=== PATIENT | male | born 1930 | race Caucasian/White ===

== ENCOUNTER 2018-04-08 11:10 | Outpatient (CLI) | payer OTHER ==
[~2018-04-08] VITALS: Ht 180.3 cm; Wt 95.0 kg
--- NOTE | ~2018-04-08 | OP ---
PATIENT NAME: ANNABELLE VASQUEZ MEDICAL RECORD: [id number] :[birth year] LOCATION:D.CAT ADMISSION DATE: SURGEON: SAYRA MURRIETA MD DATE OF OPERATION: 04/08/2018 PROCEDURE: Left heart catheterization, selective coronary angiography, plus intervention, right femoral artery approach. CATHETERS: A 5-Nauruan sheath, 5/4 left and right Bryon, 5/4 pig. The procedure was well tolerated. Sheath removed. ExoSeal device was placed. FINDINGS: Left ventriculography in the 30-degree STEWARD view. Normal wall motion and normal systolic function. CORONARY ANATOMY: LEFT MAIN: Left main is free of disease. LAD: Has a 50% stenosis and is mid portion, distally 50% to 60% stenosis. CIRCUMFLEX: Circumflex has a high OM/ramus intermedius branch, but has a proximal stenosis of approximately 80%. RIGHT CORONARY ARTERY: Severe diffuse stenosis distally for takeoff the PD of a 90%, more diffuse 80% mid portion and then ostially of greater than 90%. DESCRIPTION OF PROCEDURE: After 5-Nauruan sheath was exchanged for a 6-Nauruan sheath Hockey stick guided catheter provided good catheter support. Initially, we placed a 300 cm Whisper wire and through all sequential lesions placed a 3.0 x 20-mm balloon and went up and down the entire right coronary, down the distal portion of this vessel. Stent deployed. The distal stent required annalisa wire to be placed as with a 2.5 x 18 mm Elder drug-eluting stent, in the mid portion, a 20 mm x 3.0 stent up to 14 atmospheres and more proximally, a 3.0 x 18 and finally ostia 3.0 x 12 all drug-eluting stents up to 14 atmospheres. Final angiography shows excellent resolution of severely diseased entire right coronary with most severe being greater than 90% stenosis residual. MAURA flow was 3 at the end of procedure. Heparin and Integrilin was used in the case. Plavix was loaded in the lab. Sheath closed ExoSeal device. PLAN: Intervention of the circumflex at a later date. TRANSINT:[id number] Voice Confirmation ID: [id number] DOCUMENT ID: [id number] SAYRA MURRIETA MD CC: [id number] DICTATION DATE: 04/08/18 1501 BUTT WELDER: 04/08/18 2224 DEP CLI 04/08/18 [facility] [address] [place] [address]
--- NOTE | ~2018-04-08 | HEMODYNAMI ---
PATIENT:ANNABELLE VASQUEZ MEDICAL RECORD: [id number] : [birth year] LOCATION:[facility] ADMISSION DATE: 04/08/18 Generatedon:04/08/201814:43 Patient name: ANNABELLE VASQUEZ Patient #: [id number] SSN: : 1930 Date of study: 04/08/2018 Page: Of Hemodynamic Procedure Report Patient Data Patient Demographics Procedure consent was obtained First Name: ANNABELLE Gender: Male Last Name: CHRISTINA : 1930 Patient #: [id number] Age: 87 year(s) Race: Unknown Additional ID: [id number] Contact details [address]: [address] [place] [address] State: [place] City: [place] Zip code: [address] Past Medical History Allergies: No known allergies Admission Admission Data Admission Date: 04/08/2018 Admission Time: 11:10 Height (in.): 63 BSA: 1.98 (m2) Height (cm.): 160.02 BMI: 37.38 (kg/m2) Weight (lbs.): 211 Weight (kg.): 95.71 Lab Results Lab Result Date: 04/08/2018 Lab Result Time: 0:00 Biochemistry Name Units Result Min Max BUN mg/dl 26 --(----)-* 7 18 Creatinine mg/dl 0.9 --(-*--)-- 0.6 1.3 CBC Name Units Result Min Max Hemoglobin g/dl 15.1 --(-*--)-- 13.5 17.5 Procedure Procedure Types Cath Procedure Diagnostic Procedure [facility] w/Coronaries Sedation Charges Moderate Sedation up to 45 minutes PCI Procedure Coronary Stent Coronary Stent Initial Procedure Description Procedure Date Procedure Date: 04/08/2018 Procedure Start Time: 13:36 Procedure End Time: 14:39 Procedure Staff Name Function Russel Maxwell MD Performing Physician Nathan Maradiaga RN Clinical Services Consultant Yakelin Kilgore RT Monitor Ale Dai RN Nurse Amber Hall RT Scrub Procedure Data Cath Procedure Fluoroscopy Diagnostic fluoroscopy Total fluoroscopy Time: time: 19.8 min 19.8 min Diagnostic fluoroscopy Total fluoroscopy dose: dose: 2943 mGy 2943 mGy Contrast Material Contrast Material Type Amount (ml) Isovue 300 163 Entry Location Entry Primary Successful Side Size Upsize Upsize Entry Closure Gregorio ccessful Closure Location (Fr) 1 (Fr) 2 (Fr) Remarks Device Remarks Femoral Right 5 Fr 6 Fr Mechanical artery Short Compression Estimated blood loss: 10 ml Diagnostic catheters Device Type Used For End Catheter Placement MULTIPACK JL 4.0 5Fr Procedure catheter MULTIPACK 3DRC 5Fr Procedure catheter MULTIPACK Pigtail 5 Fr Procedure catheter Procedure Medications Medication Administration Route Dosage Oxygen etCO2 Nasal cannula 2 l/min Lidocaine 2% added to field 20 Heparin Flush Bag added to field 2 bags (1000units/500ml NS) 0.9% NaCl I.V. 100 ml/hr Radial Cocktail added to field 1 syringe (Verapomil 2mg/Nitro 400mcg/Heparin 1500units) Versed I.V. 1 mg Fentanyl I.V. 50 mcg Versed I.V. 1 mg Fentanyl I.V. 50 mcg Heparin Bolus I.V. 4000 units Integrilin (Bolus I.V. 8.5 ml 2mg/ml) Vasotec 2.5 mg Versed I.V. 1 mg Fentanyl I.V. 50 mcg Heparin Bolus I.V. 2000 units Versed I.V. 1 mg Fentanyl I.V. 50 mcg Plavix P.O. 600 mg Hemodynamics Rest BSA: 1.98 (m2) O2 Consumption: Estimated: 211.7 (ml/min) O2 Consumption indexed: Estimated:106.92 (ml/min/m) Heart Rate: 54 (bpm) Pressure Samples Time Site Value (mmHg) Purpose Heart Use Rate(bpm) 13:46 AO 182/65(87) Snapshot 55 13:50 LV 186/25,33 Snapshot 56 13:51 LV 182/23,33 EDP 56 13:51 AO 183/73(119) Pullback 56 13:51 LV 176/19,25 Pullback 56 Gradients Valve Time Site 1 Site 2 Mean SEP/DFP Peak To Heart Use (mmHg) (sec/min) Peak Rate (mmHg) (bpm) Aortic 13:51 LV AO 0 20 0 56 176/19,25 183/73(119) Calculations Valve P-P Mean Valve Index Valve Source Name Gradient Area Flow (cm2) Aortic 0 0 0 0 Snapshots Pre Cath Intra NCS Post Cath Vital Signs Time Heart Resp SPO2 etCO2 NIBP (mmHg) Rhythm Pain Sedation Rate (ipm) (%) (mmHg) Status Level (bpm) 13:26:14 56 12 98 29.8 186/80(170) NSR 0 (11) 10(A) , No pain 13:31:31 52 13 96 30 167/81(137) NSR 0 (11) 10(A) , No pain 13:35:57 54 12 94 0 153/75(122) NSR 0 (11) 9(A) , No pain 13:40:18 50 14 93 0 153/75(133) NSR 0 (11) 9(A) , No pain 13:44:38 50 13 98 26.1 165/73(125) NSR 0 (11) 9(A) , No pain 13:49:04 54 12 96 0 161/71(133) NSR 0 (11) 9(A) , No pain 13:53:28 56 13 93 0 159/72(140) NSR 0 (11) 9(A) , No pain 13:57:46 62 19 96 9.6 163/92(144) NSR 0 (11) 9(A) , No pain 14:03:14 63 19 99 10.4 194/93(161) NSR 0 (11) 10(A) , No pain 14:07:44 68 13 99 25.3 205/104(166) NSR 0 (11) 9(A) , No pain 14:12:19 63 12 92 25.3 194/111(132) NSR 0 (11) 9(A) , No pain 14:16:49 64 11 94 18.6 210/107(172) NSR 0 (11) 9(A) , No pain 14:21:22 60 12 94 14.8 187/93(159) NSR 0 (11) 9(A) , No pain 14:25:50 65 12 98 13.4 201/99(166) NSR 0 (11) 9(A) , No pain 14:31:24 66 13 98 28.2 202/107(161) NSR 0 (11) 9(A) , No pain 14:35:56 65 12 96 11.9 207/97(171) NSR 0 (11) 10(A) , No pain 14:41:46 63 16 96 9.6 201/97(167) NSR 0 (11) 10(A) , No pain Medications Time Medication Route Dose Verified Delivered Reason Not es Effectiveness by by 13:24:28 Oxygen etCO2 2 l/min Russel Buffie used for Nasal [facility] RN procedure cannula 13:24:35 Lidocaine 2% added 20ml Russel Russel for local to vial [facility] anesthetic field MD KEY 13:24:41 Heparin Flush added 2 bags Russel Russel used for Bag to [facility] procedure (1000units/500ml field MD KEY NS) 13:24:50 0.9% NaCl I.V. 100 Russel Buffie Per physician ml/hr [facility] RN, MD 13:24:56 Radial Cocktail added 1 Russel Russel for not used (Verapomil to syringe [facility] vasodilation 2mg/Nitro field MD KEY 400mcg/Heparin 1500units) 13:32:46 Versed I.V. 1 mg Russel Buffie for sedation [facility] RN, MD 13:32:52 Fentanyl I.V. 50 mcg Russel Buffie for sedation [facility] RN, MD 13:46:42 Versed I.V. 1 mg Russel Buffie for sedation [facility] RN, MD 13:46:45 Fentanyl I.V. 50 mcg Russel Buffie for sedation [facility] RN, MD 13:51:24 Heparin Bolus I.V. 4000 Russel Buffie for oscar ified units [facility] D[facility] RN anticoagulation with dr MD cheng 13:53:19 Integrilin I.V. 8.5 ml Russel Yanezie for Was carol ann (Bolus 2mg/ml) [facility] RN antiplatelet 1.5 ml MD therapy of vial 14:03:01 Vasotec IV 2.5 mg Russel Buffie Per physician [facility] RN, MD 14:06:40 Versed I.V. 1 mg Russel Buffie for sedation [facility] RN, MD 14:06:45 Fentanyl I.V. 50 mcg Russel Buffie for sedation [facility] RN, MD 14:23:28 Heparin Bolus I.V. 2000 Russel Yanezie for oscar ified units [facility] D[facility] RN anticoagulation with dr MD cheng 14:33:13 Versed I.V. 1 mg Russel Aguilera for sedation [facility] RN, MD 14:33:17 Fentanyl I.V. 50 mcg Russel Aguilera for sedation [facility] RN, MD 14:40:29 Plavix P.O. 600 mg Russel Aguilera for [facility] RN antiplatelet MD therapy Procedure Log Time Note 13:14:02 Diagnostic Cath status Elective 13:14:08 Nathan Maradiaga RN sent for patient. Start room use. 13:14:39 Patient Height : 63 inches 13:14:44 Patient Weight : 211 lbs 13:17:40 Lab Result : BUN 26 mg/dl 13:17:40 Lab Result : Hemoglobin 15.1 g/dl 13:17:40 Lab Result : Creatinine 0.9 mg/dl 13:18:14 Time tracking: Regular hours (M-F 7:00 - 5:00) 13:18:19 Plan of Care:Hemodynamics will remain stable., Cardiac rhythm will remain stable., Comfort level will be maintained., Respiratory function will remain adequate., Patient/ family verbilizes understanding of procedure., Procedure tolerated without complication., Recovers from procedure without complications.. 13:18:25 Patient received from Pre/Post Procedure Room to CCL 2 Alert and oriented. Tansferred to table in Supine position. 13:18:27 Warm blankets applied, and heriberto hugger turned on for patient comfort. 13:18:27 Correct patient and procedure confirmed by team. 13:18:29 Signed procedure consent form obtained from patient. 13:18:32 ECG and BP/O2 sat monitors applied to patient. 13:18:45 H&P Date Dictated: 04/02/2018 Within 30 days and on chart., H&P Addendum completed by physician on day of procedure. (MUST COMPLETE FOR ALL OUTPATIENTS). 13:18:49 Family in waiting room. 13:18:51 Patient NPO since Midnight. 13:19:00 Patient allergic to No known allergies 13:19:03 Is the patient allergic to Iodine/contrast media? No. 13:19:04 Was the patient premedicated? Yes 13:19:09 Is patient on blood thinner?No 13:19:11 Patient diabetic? No. 13:19:16 Snore? Yes 13:19:17 Sleep apnea? Yes 13:19:24 Dentures? Yes tight 13:19:28 Patient pain scale 0/10 ?. 13:19:40 IV patent on arrival in left forearm with 0.9% NaCl at [facility]. 13:19:47 Lab results completed and on chart. 13:19:59 Right Radial & Right Groin area was prepped with chlora-prep and draped in sterile fashion 13:20:00 Alarms reviewed by R. N. 13:20:00 Sharps counted by scrub and verified by R.N. 13:20:02 Physician paged 13:24:28 Oxygen 2 l/min etCO2 Nasal cannula was administered by Ale Dai RN; used for procedure; 13:24:35 Lidocaine 2% 20ml vial added to field was administered by Russel Maxwell MD; for local anesthetic; 13:24:41 Heparin Flush Bag (1000units/500ml NS) 2 bags added to field was administered by Russel Maxwell MD; used for procedure; 13:24:50 0.9% NaCl 100 ml/hr I.V. was administered by Ale Dai RN; Per physician; 13:24:56 Radial Cocktail (Verapomil 2mg/Nitro 400mcg/Heparin 1500units) 1 syringe added to field was administered by Russel Maxwell MD; for vasodilation; not used 13:25:01 Vital chart was started 13:27:28 Physician arrived 13:29:07 Use device set Radial Dx or PCI 13:29:09 ACIST Syringe (65798) opened to sterile field. 13:29:10 Medline Cath Pack ([id number]) opened to sterile field. 13:29:10 Bag Decanter () opened to sterile field. 13:29:10 DIAGNOSTIC WIRE .035 260cm J wire (566735) opened to sterile field. 13:29:14 ACIST Hand Control (45860) opened to sterile field. 13:29:14 ACIST Manifold (17692) opened to sterile field. 13:29:15 Tegaderm 4 x 4 (1626W) opened to sterile field. 13:29:22 SHEATH 6FR Slender (40-1060) opened to sterile field. 13:29:23 MBrace Wrist Support ([id number]) opened to sterile field. 13:30:40 Zero performed for pressure channel P1 13:32:32 --------ALL STOP TIME OUT------ 13:32:32 Final Timeout: patient, procedure, and site verified with staff and physician. All members of the team are in agreement. 13:32:35 Right Radial & Right Groin site verified by team. 13:32:40 Physical assessment completed. ASA score P 2 - A patient with mild systemic disease as per Russel Maxwell MD. 13:32:43 Sedation plan: IV Moderate Sedation Medication:Versed, Fentanyl 13:32:46 Versed 1 mg I.V. was administered by Ael Dai RN; for sedation; 13:32:52 Fentanyl 50 mcg I.V. was administered by Ale Dai RN; for sedation; 13:36:36 Procedure started. 13:36:36 Full Disclosure recording started 13:36:56 Local anesthetic to right radial artery with Lidocaine 2% by Russel Maxwell MD.INITIAL ACCESS ONLY 13:37:29 Baseline sample Acquired. 13:42:26 Local anesthetic to left femerol artery with Lidocaine 2% by Russel Maxwell MD.ADDITIONAL ACCESS 13:42:47 SHEATH 5FR Castile (XGL047) opened to sterile field. 13:42:48 DIAGNOSTIC Multipack 5Fr catheter set (LK5478) opened to sterile field. 13:43:07 A 5 Fr sheath was inserted into the Right Femoral artery 13:43:12 J wire advanced. 13:45:43 A MULTIPACK JL 4.0 5Fr catheter was advanced over the wire and used for Procedure. 13:45:53 Baseline sample Acquired. 13:46:42 Versed 1 mg I.V. was administered by Ale Dai RN; for sedation; 13:46:45 Fentanyl 50 mcg I.V. was administered by Ale Dai RN; for sedation; 13:47:45 LCA angiography performed. 13:48:00 Catheter removed. 13:48:13 A MULTIPACK 3DRC 5Fr catheter was advanced over the wire and used for Procedure. 13:48:59 RCA angiography performed. 13:49:14 Catheter removed. 13:50:04 A MULTIPACK Pigtail 5 Fr catheter was advanced over the wire and used for Procedure. 13:50:08 LV angiography performed. 13:51:24 Heparin Bolus 4000 units I.V. was administered by Ale Dai RN; for anticoagulation; verified with dr skylar 13:51:33 Catheter removed. 13:51:38 EF : 50 % 13:53:19 Integrilin (Bolus 2mg/ml) 8.5 ml I.V. was administered by Ale Dai RN; for antiplatelet therapy; Wasted 1.5 ml of vial 13:53:41 INFLATOR Merit Hiltonpak (QT5465) opened to sterile field. 13:53:41 GUIDE 6FR HS I SH catheter ([id number]) opened to sterile field. 13:53:42 WHISPER 300cm guide wire ([id number]) opened to sterile field. 13:53:44 SHEATH 6FR Castile (SUM803) opened to sterile field. 13:53:48 Catheter removed. 13:53:52 Proceeding to intervention. 13:54:03 Sheath upsized to a 6 Fr Short. 13:54:16 6 Fr AR1SH guide catheter was inserted over the wire 13:54:25 whisper wire advanced. 13:56:14 Wire advanced across lesion. 13:57:36 Inflate balloon Inflation number: 1 A EMERGE OTW 3.0 x 20 balloon ([id number]) was prepped and advanced across the Dist RCA, then inflated to 10 JONATAN for 0:11 (min:sec). 13:58:04 Inflation number: 2 The EMERGE OTW 3.0 x 20 balloon ([id number]) was reinflated across the Dist RCA, to 10 JONATAN for 0:15 (min:sec). 13:58:31 Inflation number: 3 The EMERGE OTW 3.0 x 20 balloon ([id number]) was reinflated across the Dist RCA, to 12 JONATAN for 0:13 (min:sec). 13:59:06 Inflation number: 1 The EMERGE OTW 3.0 x 20 balloon ([id number]) was reinflated across the Mid RCA, to 12 JONATAN for 0:14 (min:sec). 13:59:54 CHOICE PT Extra Support J 300cm guide wire ([id number]) opened to sterile field. 14:00:14 Wire removed. 14:00:28 Choice pt ex wire advanced. 14:01:01 Inflation number: 2 The EMERGE OTW 3.0 x 20 balloon ([id number]) was reinflated across the Mid RCA, to 12 JONATAN for 0:07 (min:sec). 14:02:12 Inflation number: 1 The EMERGE OTW 3.0 x 20 balloon ([id number]) was reinflated across the Prox RCA, to 12 JONATAN for 0:10 (min:sec). 14:02:41 Inflation number: 2 The EMERGE OTW 3.0 x 20 balloon ([id number]) was reinflated across the Prox RCA, to 10 JONATAN for 0:10 (min:sec). 14:03:01 Vasotec 2.5 mg IV was administered by Ale Dai RN; Per physician; 14:06:40 Versed 1 mg I.V. was administered by Ale Dai RN; for sedation; 14:06:45 Fentanyl 50 mcg I.V. was administered by Ale Dai RN; for sedation; 14:07:29 Balloon removed over the wire. 14:09:44 Inflate balloon Inflation number: 4 A EMERGE OTW 2.5 x 30 balloon ([id number]) was prepped and advanced across the Dist RCA, then inflated to 12 JONATAN for 0:25 (min:sec). 14:10:17 Inflation number: 3 The EMERGE OTW 2.5 x 30 balloon ([id number]) was reinflated across the Mid RCA, to 14 JONATAN for 0:12 (min:sec). 14:11:05 Inflation number: 3 The EMERGE OTW 2.5 x 30 balloon ([id number]) was reinflated across the Prox RCA, to 14 JONATAN for 0:28 (min:sec). 14:11:50 Balloon removed over the wire. 14:15:48 Place stent Inflation Number: 4 A RACHAEL OTW 3.0 x 22 stent ([id number]) was prepped and advanced across the Mid RCA. The stent was deployed at 14 JONATAN for 0:21 (min:sec). 14:16:42 Stent catheter was removed intact over wire. 14:21:03 WHISPER 300cm guide wire ([id number]) opened to sterile field. 14:21:37 New whisper wire opened to annalisa with choice pt and stent 14:23:28 Heparin Bolus 2000 units I.V. was administered by Ale Dai RN; for anticoagulation; verified with dr cheng 14:24:09 annalisa wire removed 14:24:33 Place stent Inflation Number: 5 A RACHAEL OTW 2.5 x 15 stent ([id number]) was prepped and advanced across the Dist RCA. The stent was deployed at 14 JONATAN for 0:20 (min:sec). 14:26:08 Stent catheter was removed intact over wire. 14:31:27 Place stent Inflation Number: 4 A RACHAEL OTW 3.0 x 18 stent ([id number]) was prepped and advanced across the Prox RCA. The stent was deployed at 0 JONATAN for 0:06 (min:sec). 14:31:38 Stent catheter was removed intact over wire. 14:33:13 Versed 1 mg I.V. was administered by Ale Dai RN; for sedation; 14:33:17 Fentanyl 50 mcg I.V. was administered by Ale Dai RN; for sedation; 14:33:55 Place stent Inflation Number: 5 A RACHAEL RX 3.0 x 12 stent ([id number]) was prepped and advanced across the Prox RCA. The stent was deployed at 14 JONATAN for 0:22 (min:sec). 14:34:45 EXOSEAL 6Fr (EX600) opened to sterile field. 14:34:50 Wire removed. 14:34:51 Guide catheter removed. 14:35:01 Sheath removed intact; hemostasis achieved with Mechanical Compression to the Right Femoral artery. 14:35:03 Procedure ended.(Physican Out) 14:35:36 Fluoroscopy time 19.80 minutes. 14:35:41 Fluoroscopy dose: 2943 mGy 14:35:41 Flurop Dose total: 2943 14:35:47 Contrast amount:Isovue 300 163ml. 14:35:48 Sharps counted by scrub and verified by R.N. 14:35:56 Insertion/operative site no bleeding no hematoma. 14:36:51 Post-op/insertion site Right Femoral artery dressed using a 4 x 4 and Tegaderm. 14:36:58 Post Procedure Pulses reassessed and unchanged 14:37:03 Post-procedure physical assessment completed. ASA score P 2 - A patient with mild systemic disease as per Russel Maxwell MD. 14:37:07 Post procedure rhythm: unchanged. 14:37:12 Estimated blood loss: 10 ml 14:37:24 Post procedure instruction explained to patient.Patient verbalizes understanding. 14:38:03 Procedure type changed to Cath procedure, Diagnostic procedure, LHC, LHC w/Coronaries, Sedation Charges, Moderate Sedation up to 45 minutes, PCI procedure, Coronary Stent, Coronary Stent Initial 14:38:05 Procedure and supply charges have been captured, reviewed, submitted and are correct. 14:39:02 Vital chart was stopped 14:39:03 See physician's report for complete and final results. 14:39:05 Report given to Pre/Post Procedure Room. 14:39:08 Patient transfered to Pre/Post Procedure Room with Stretcher. 14:39:10 Procedure ended. 14:39:10 Full Disclosure recording stopped 14:39:19 ACC-PCI Only Patient was given prescriptions, or instructed by Russel Maxwell MD to start/continue the following medications upon discharge: Aspirin 14:39:20 End room use (Document Last) 14:40:29 Plavix 600 mg P.O. was administered by Ale Dai RN; for antiplatelet therapy; Intervention Summary Intervention Notes Time ActionType Lesion and Equipment Used Action# Pressure Duration Attributes 13:57:36 Inflate Dist RCA EMERGE OTW 3.0 1 10 00:11 balloon x 20 balloon ([id number]) 13:58:04 Reinflate Dist RCA EMERGE OTW 3.0 2 10 00:15 balloon x 20 balloon ([id number]) 13:58:31 Reinflate Dist RCA EMERGE OTW 3.0 3 12 00:13 balloon x 20 balloon ([id number]) 13:59:06 Reinflate Mid RCA EMERGE OTW 3.0 1 12 00:14 balloon x 20 balloon ([id number]) 14:01:01 Reinflate Mid RCA EMERGE OTW 3.0 2 12 00:07 balloon x 20 balloon ([id number]) 14:02:12 Reinflate Prox RCA EMERGE OTW 3.0 1 12 00:10 balloon x 20 balloon ([id number]) 14:02:41 Reinflate Prox RCA EMERGE OTW 3.0 2 10 00:10 balloon x 20 balloon ([id number]) 14:09:44 Inflate Dist RCA EMERGE OTW 2.5 4 12 00:25 balloon x 30 balloon ([id number]) 14:10:17 Reinflate Mid RCA EMERGE OTW 2.5 3 14 00:12 balloon x 30 balloon ([id number]) 14:11:05 Reinflate Prox RCA EMERGE OTW 2.5 3 14 00:28 balloon x 30 balloon ([id number]) 14:15:48 Place stent Mid RCA RACHAEL OTW 3.0 x 4 14 00:21 22 stent ([id number]) 14:24:33 Place stent Dist RCA RACHAEL OTW 2.5 x 5 14 00:20 15 stent ([id number]) 14:31:27 Place stent Prox RCA RACHAEL OTW 3.0 x 4 0 00:06 18 stent ([id number]) 14:33:55 Place stent Prox RCA RACHAEL RX 3.0 x 5 14 00:22 12 stent ([id number]) Device Usage Item Name Manufacture Quantity Catalog Number Hospital Part Current Minimal Lot# / Charge Number Stock Stock Serial# Code ACIST Syringe Acist 1 43203 079089 390440 111621 20 (72499) Medical Systems Inc Medline Cath Medline 1 [id number] 340481 00914 137890 5 Pack ([id number]) Bag Decanter Microtek 1 372088 47154 237920 5 () Medical Inc. DIAGNOSTIC St Yaya 1 245732 193992 656268 522453 30 WIRE .035 260cm J wire (968701) ACIST Hand Acist 1 97450 830163 728304 526992 5 Control Medical (24497) Systems Inc ACIST Manifold Acist 1 54293 694623 308180 731637 5 (68803) Medical Systems Inc Tegaderm 4 x 4 3M 1 1626W 347116 517069 681794 5 (1626W) SHEATH 6FR Terumo 1 [id number] 248965 040171 712238 5 Slender (80-1060) MBrace Wrist Advanced 1 140-0250-00 149110 69313 577449 5 Support Vascular ([id number]) Dynamics SHEATH 5FR Terumo 1 ZVG276 555692 179386 406535 5 Castile (FUA335) DIAGNOSTIC Cardinal 1 JL4317 757542 10405 198301 30 Multipack 5Fr Health catheter set (SO3421) MULTIPACK JL Cardinal 1 816703 5 4.0 5Fr Health catheter MULTIPACK 3DRC Cardinal 1 844938 5 5Fr catheter Health MULTIPACK Cardinal 1 698490 5 Pigtail 5 Fr Health catheter INFLATOR Merit Merit 1 GA9004 922062 799467 289858 [facility] (YR1757[facility] GUIDE 6FR HS I Medtronic 1 [id number] 143307 44413 768317 1 SH catheter ([id number]) WHISPER 300cm Zimmer 2 [id number] 545524 815202 096969 5 guide wire Vascular ([id number]) SHEATH 6FR Terumo 1 RHZ743 590343 905743 628424 40 Castile (HYN695) EMERGE OTW 3.0 Mckenna 1 [id number] 041946 283292 221423 5 [id number] x 20 balloon Scientific ([id number]) CHOICE PT Mckenna 1 [id number] 780849 140294 461131 5 Extra Support Scientific J 300cm guide wire (7003957X2) EMERGE OTW 2.5 Mckenna 1 [id number] 748418 700021 579439 5 89463112 x 30 balloon Scientific ([id number]) RACHAEL OTW 3.0 x Medtronic 1 [id number] 779684 1989635 146418 5 [id number] 22 stent ([id number]) RACHAEL OTW 2.5 x Medtronic 1 [id number] 763525 28203 906256 5 [id number] 15 stent ([id number]) RACHAEL OTW 3.0 x Medtronic 1 [id number] 465784 5321733 707760 5 [id number] 18 stent ([id number]) RACHAEL RX 3.0 x Medtronic 1 [id number] 999124 9964338 469430 5 [id number] 12 stent ([id number]) EXOSEAL 6Fr Cardinal 1 EX600 569034 882887 223507 10 (EX600) Health Signature Audit [place] Stage Time Signature Unsigned Intra-Procedure 04/08/2018 Yakelin Kilgore 2:43:46 PM RT(R) Signatures Monitor : Yakelin Kilgore RT Signature : Date : Time : [facility] [address] [facility] [place] [address]
[2018-04-08] MEDS ORDERED: OMEPRAZOLE40 MG PO (11:25)
[2018-04-08] MEDS ORDERED: LISINOPRIL10 MG PO (11:26)
[2018-04-08 11:57] VITALS: BP 182/71; Ht 180.3 cm; Wt 95.0 kg
[2018-04-08 12:07] LABS: CALC OSMOLALITY 283 mosm/kg (275-300); CARBON DIOXIDE 27.8 mmol/L (21.0-32.0); CHLORIDE - SERUM 105 mmol/L (98-107); CREATININE - SERUM 0.9 mg/dL (0.6-1.3); GLUCOSE 95 mg/dL (74-106); POTASSIUM - SERUM 3.9 mmol/L (3.5-5.1); SODIUM 140 mmol/L (136-145); UREA NITROGEN 26 mg/dL (7-18); eGFR NON AFRICAN AMERICAN 84 mL/min (90-120)
[2018-04-08 12:09] LABS: HEMATOCRIT 41.5 % (42.0-54.0); HEMOGLOBIN 15.1 g/dL (13.5-17.5); LYMPHOCYTES 35.9 % (15-50); MCH 32.1 pg (26.0-34.0); MCHC 36.4 g/dL (31.0-37.0); MCV 88.1 fL (80.0-100.0); MEAN PLATELET VOLUME 10.9 fL (7.4-10.4); PLATELET COUNT 164 10x3/uL (130-400); RBC 4.71 10x6/uL (4.20-6.10); RDW 13.3 % (11.5-14.5); WBC 6.7 10x3/uL (4.8-10.8)
[2018-04-08] MEDS ORDERED: BAYER CHEWABLE81 MG PO (14:56)
[2018-04-08] MEDS ORDERED: PLAVIX75 MG PO (14:56)
== END 2018-04-08 18:40 | disposition home or self-care (01) ==
LOC: D.CATH 11:10
PROVIDERS: Internal Medicine Interventional Cardiology
DX: I25.119 Atherosclerotic heart disease of native coronary artery with unspecified angina pectoris (principal); Z01.812 Encounter for preprocedural laboratory examination

== ENCOUNTER 2018-04-28 06:37 | Outpatient (CLI) | payer MEDICARE ==
[~2018-04-28] VITALS: Ht 180.3 cm; Wt 94.5 kg
--- NOTE | ~2018-04-28 | HEMODYNAMI ---
PATIENT:ANNABELLE VASQUEZ MEDICAL RECORD: [id number] : [birth year] LOCATION:[facility] ADMISSION DATE: 04/28/18 Generatedon:04/28/201810:02 Patient name: ANNABELLE VASQUEZ Patient #: [id number] SSN: : 1930 Date of study: 04/28/2018 Page: Of Hemodynamic Procedure Report Patient Data Patient Demographics Procedure consent was obtained First Name: ANNABELLE Gender: Male Last Name: CHRISTINA : 1930 Patient #: [id number] Age: 87 year(s) Race: Unknown Additional ID: [id number] Contact details Address: [address] [place] [address] State: [place] City: [place] Zip code: [address] Past Medical History Allergies: No known allergies Admission Admission Data Admission Date: 04/28/2018 Admission Time: 6:37 Height (in.): 72 BSA: 2.18 (m2) Height (cm.): 182.88 BMI: 28.62 (kg/m2) Weight (lbs.): 211 Weight (kg.): 95.71 Procedure Procedure Types Cath Procedure PCI Procedure Coronary Stent Coronary Stent Initial Procedure Description Procedure Date Procedure Date: 04/28/2018 Procedure Start Time: 9:49 Procedure End Time: 9:57 Procedure Staff Name Function Russel Maxwell MD Performing Physician Emma Fernandez RT Monitor Cristal Solo RN Nurse Radha Merlos RT Scrub Nathan Maradiaga RN Store Lead Procedure Data Cath Procedure Fluoroscopy Diagnostic fluoroscopy Total fluoroscopy Time: 1 time: 1 min min Diagnostic fluoroscopy Total fluoroscopy dose: 182 dose: 182 mGy mGy Contrast Material Contrast Material Type Amount (ml) Isovue 300 33 Entry Location Entry Primary Successful Side Size Upsize Upsize Entry Closure Succes sful Closure Location (Fr) 1 (Fr) 2 (Fr) Remarks Device Remarks Femoral Right 6 Fr Exoseal artery Short Estimated blood loss: 10 ml Procedure Complications No complications Procedure Medications Medication Administration Route Dosage 0.9% NaCl I.V. 100 ml/hr Oxygen etCO2 Nasal cannula 2 l/min Lidocaine 2% added to field 20 Heparin Flush Bag added to field 2 bags (1000units/500ml NS) Versed I.V. 2 mg Fentanyl I.V. 50 mcg Heparin Bolus I.V. 5000 units Versed I.V. 1 mg Plavix P.O. 75 mg Hemodynamics Rest BSA: 2.18 (m2) O2 Consumption: Estimated: 247.33 (ml/min) O2 Consumption indexed : Estimated:113.45 (ml/min/m) Heart Rate: 71 (bpm) Snapshots Pre Cath Intra NCS Post Cath Vital Signs Time Heart Resp SPO2 etCO2 NIBP (mmHg) Rhythm Pain Sedation Rate (ipm) (%) (mmHg) Status Level (bpm) 9:30:51 72 14 98 28.6 180/106(145) NSR 0 (11) 10(A) , No pain 9:35:25 68 15 100 29 143/95(116) NSR 0 (11) 10(A) , No pain 9:40:55 71 16 98 27 158/88(120) NSR 0 (11) 10(A) , No pain 9:46:39 72 12 97 28 177/85(125) NSR 0 (11) 10(A) , No pain 9:52:25 70 14 98 32 159/98(124) NSR 0 (11) 9(A) , No pain 9:56:58 70 14 97 29.6 172/91(147) NSR 0 (11) 10(A) , No pain 10:01:34 71 15 98 13.5 189/95(132) NSR 0 (11) 10(A) , No pain Medications Time Medication Route Dose Verified Delivered Reason Notes Effectiveness by by 9:35:02 0.9% NaCl I.V. 100 Russel Bee used for ml/hr Alissa Edil procedure MD [place] 9:35:09 Oxygen etCO2 2 Russel Bee used for Nasal l/min AlissaMark Solo procedure cannula MD [place] 9:35:15 Lidocaine 2% added 20ml Russel Goode for local to vial [facility] anesthetic field MD [place] 9:35:20 Heparin Flush added 2 Russel Goode used for Bag to bags [facility] procedure (1000units/500ml field MD KEY NS) 9:41:13 Plavix P.O. 75 mg Russel Camejoyla for [facility] antiplatelet RN therapy 9:43:31 Versed I.V. 2 mg Russel Camejoyla for sedation [facility] MD, RN 9:43:40 Fentanyl I.V. 50 Russel Camejoyla for sedation mcg [facility] MD, RN 9:48:21 Versed I.V. 1 mg Russel Camejoyla for sedation [facility] MD, RN 9:49:54 Heparin Bolus I.V. 5000 Russel Cristal for verifi ed units [facility] anticoagulation with Dr. MD BERE Fiore Procedure Log Time Note 8:51:38 Procedure type changed to Cath procedure, PCI procedure, Coronary Stent, Coronary Stent Initial 8:51:42 Time tracking: Regular hours (M-F 7:00 - 5:00) 8:51:46 Plan of Care:Hemodynamics will remain stable., Cardiac rhythm will remain stable., Comfort level will be maintained., Respiratory function will remain adequate., Patient/ family verbilizes understanding of procedure., Procedure tolerated without complication., Recovers from procedure without complications.. 9:09:27 Patient allergic to No known allergies 9:09:42 H&P Date Dictated: 04/02/2018 Within 30 days and on chart., H&P Addendum completed by physician on day of procedure. (MUST COMPLETE FOR ALL OUTPATIENTS). 9:10:11 Patient Weight : 211 lbs 9:10:54 Patient Height : 72 inches 9:20:45 Nathan Maradiaga RN sent for patient. Start room use. 9:26:34 Patient received from Pre/Post Procedure Room to CCL 1 Alert and oriented. Tansferred to table in Supine position. 9:26:35 Warm blankets applied, and heriberto hugger turned on for patient comfort. 9:26:35 Correct patient and procedure confirmed by team. 9:26:37 Signed procedure consent form obtained from patient. 9:26:38 ECG and BP/O2 sat monitors applied to patient. 9:26:39 Full Disclosure recording started 9:29:32 Vital chart was started 9:35:02 0.9% NaCl 100 ml/hr I.V. was administered by Cristal Solo RN; used for procedure; 9:35:09 Oxygen 2 l/min etCO2 Nasal cannula was administered by Cristal Solo RN; used for procedure; 9:35:15 Lidocaine 2% 20ml vial added to field was administered by Russel Maxwell MD; for local anesthetic; 9:35:20 Heparin Flush Bag (1000units/500ml NS) 2 bags added to field was administered by Russel Maxwell MD; used for procedure; 9:38:04 Baseline sample Acquired. 9:38:12 Pre-procedure instructions explained to patient. 9:38:12 Pre-op teaching completed and patient verbalized understanding. 9:38:13 Family in patients room. 9:38:15 Patient NPO since Midnight. 9:38:39 Is patient on blood thinner?Yes 9:38:41 ACC The patient was administered the following blood thiners within the last 24 hours: ACCPlavix 9:38:45 Patient diabetic? No. 9:38:57 Previous problem with sedation/anesthesia? No ? 9:39:03 Snore? No 9:39:04 Sleep apnea? No 9:39:06 Deviated septum? No 9:39:07 Opens mouth fully? Yes 9:39:08 Sticks out tongue? Yes 9:39:10 Airway obstruction? No ? 9:39:13 Dentures? No ? 9:39:15 Pre procedure: right dorsailis pedis pulse 2+ Normal; easily identifiable; not easily obliterated 9:39:28 IV patent on arrival in left hand with 0.9% NaCl at O. 9:39:43 Lab results completed and on chart. 9:39:46 Right groin area was prepped with chlora-prep and draped in sterile fashion 9:39:50 Alarms reviewed by R. N. 9:39:51 Sharps counted by scrub and verified by R.N. 9:39:55 Use device set CATH PACK 9:39:57 ACIST Syringe (35457) opened to sterile field. 9:39:57 ACIST Hand Control (66507) opened to sterile field. 9:39:58 ACIST Manifold (85593) opened to sterile field. 9:39:58 Medline Cath Pack ([id number]) opened to sterile field. 9:39:58 Bag Decanter () opened to sterile field. 9:39:59 DIAGNOSTIC WIRE .035 260cm J wire (275090) opened to sterile field. 9:40:08 SHEATH 6FR Silverpeak (LJG404) opened to sterile field. 9:40:21 INFLATOR Merit BasixCompak (BL3785) opened to sterile field. 9:40:22 WHISPER 300cm guide wire ([id number]) opened to sterile field. 9:41:13 Plavix 75 mg P.O. was administered by Cristal Solo RN; for antiplatelet therapy; 9:42:10 --------ALL STOP TIME OUT------ 9:42:10 Final Timeout: patient, procedure, and site verified with staff and physician. All members of the team are in agreement. 9:42:11 Right groin site verified by team. 9:42:14 Physical assessment completed. ASA score P 2 - A patient with mild systemic disease as per Russel Maxwell MD. 9:42:16 Sedation plan: IV Moderate Sedation Medication:Versed, Fentanyl 9:43:31 Versed 2 mg I.V. was administered by Cristal Solo RN; for sedation; 9:43:40 Fentanyl 50 mcg I.V. was administered by Cristal Solo RN; for sedation; 9:45:07 Rhythm: sinus rhythm 9:46:59 Zero performed for pressure channel P1 9:48:21 Versed 1 mg I.V. was administered by Cristal Solo RN; for sedation; 9:48:57 Procedure started. 9:49:17 GUIDE 6FR JL 4.0 catheter ([id number]) opened to sterile field. 9:49:21 Local anesthetic to right femoral artery with Lidocaine 2% by Russel Maxwell MD.INITIAL ACCESS ONLY 9:49:42 A 6 Fr Short sheath was inserted into the Right Femoral artery 9:49:53 6 Fr JL 4 guide catheter was inserted over the wire 9:49:54 Heparin Bolus 5000 units I.V. was administered by Cristal Solo RN; for anticoagulation; verified with Dr. Fiore 9:52:04 WHISPER wire advanced. 9:52:36 Wire advanced across lesion. 9:54:20 Place stent Inflation Number: 1 A RACHAEL RX 3.0 x 18 stent ([id number]) was prepped and advanced across the 1st Ob Meaghan. The stent was deployed at 14 JONATAN for 0:10 (min:sec). 9:54:25 Stent catheter was removed intact over wire. 9:54:46 Wire removed. 9:54:47 Guide catheter removed. 9:55:04 EXOSEAL 6Fr (EX600) opened to sterile field. 9:55:22 Sheath removed intact; hemostasis achieved with Exoseal to the Right Femoral artery. 9:55:36 Procedure ended.(Physican Out) 9:56:52 Fluoroscopy time 01.00 minutes. 9:56:58 Flurop Dose total: 182 9:56:58 Fluoroscopy dose: 182 mGy 9:57:03 Contrast amount:Isovue 300 33ml. 9:57:05 Sharps counted by scrub and verified by R.N. 9:57:08 Post-op/insertion site Right Femoral artery dressed using a 4 x 4 and Tegaderm. 9:57:11 Post-procedure physical assessment completed. ASA score P 2 - A patient with mild systemic disease as per Russel Maxwell MD. 9:57:14 Post procedure rhythm: unchanged. 9:57:20 Estimated blood loss: 10 ml 9:57:22 Post procedure instruction explained to patient.Patient verbalizes understanding. 9:57:22 Patient needs reinforcement of post procedure teaching. 9:57:47 Procedure and supply charges have been captured, reviewed, submitted and are correct. 9:57:50 Procedure Complication : No complications 9:57:52 See physician's report for complete and final results. 9:57:53 Report given to Pre/Post Procedure Room. 9:57:56 Patient transfered to Pre/Post Procedure Room with Bed. 9:57:58 Procedure ended. 9:57:58 Full Disclosure recording stopped 9:58:01 End room use (Document Last) 10:02:09 Vital chart was stopped Intervention Summary Intervention Notes Time ActionType Lesion and Equipment Used Action# Pressure Duration Attributes 9:54:[address] Place stent 1st Ob Meaghan RACHAEL RX 3.0 x 1 14 00:10 18 stent ([id number]) Device Usage Item Name Manufacture Quantity Catalog Hospital Part [facility] Lot# / Number Charge Number Stock Stock Serial# Code ACIST Syringe Acist 1 67362 715096 149256 329258 20 (11805) [employer] ACIST Hand Acist 1 27245 183172 031480 843354 5 Control Medical (23184) [employer] ACIST Manifold Acist 1 37300 016595 399248 006381 5 (27560) [employer] Medline Cath Medline 1 [id number] 045574 30890 132844 5 Pack ([id number]) Bag Decanter Microtek 1 2001S 338430 31008 046397 5 (2001S) Medical Inc. DIAGNOSTIC St Yaya 1 [id number] 068417 171167 084979 30 WIRE .035 260cm J wire (684382) SHEATH 6FR Terumo 1 TEN675 767520 967909 332795 40 Silverpeak (XIG263) INFLATOR Merit Merit 1 DS4855 861623 049024 525090 15 [facility] Medical (AY6210) WHISPER 300cm Zimmer 1 [id number] 357058 605054 756689 5 guide wire Vascular ([id number]) GUIDE 6FR JL Medtronic 1 [id number] 888444 07305 763620 1 4.0 catheter (TQ1VK39) RACHAEL RX 3.0 x Medtronic 1 [id number] 806834 3831614 772306 5 [id number] 18 stent ([id number]) EXOSEAL 6Fr Cardinal 1 EX600 564816 729965 760166 10 (EX600) Health Signature Audit Ada Stage Time Signature Unsigned Intra-Procedure 04/28/2018 Emma Fernandez 10:02:06 AM RT(R) Signatures Monitor : Emma Fernandez Signature : RT Date : Time : [facility] [address] [place] [address]
[~2018-04-28 06:37] MED LIST: BAYER CHEWABLE81 MG PO; LISINOPRIL10 MG PO; OMEPRAZOLE40 MG PO; PLAVIX75 MG PO
[2018-04-28 07:33] VITALS: BP 163/84; Ht 180.3 cm; Wt 94.5 kg
[2018-04-28 07:51] LABS: BASOPHILS 0.7 % (0-2); HEMATOCRIT 41.5 % (42.0-54.0); HEMOGLOBIN 14.3 g/dL (13.5-17.5); IMMATURE GRANULOCYTES 0.3 % (0-5); MCH 30.6 pg (26.0-34.0); MCHC 34.5 g/dL (31.0-37.0); MCV 88.9 fL (80.0-100.0); MEAN PLATELET VOLUME 11.4 fL (7.4-10.4); MONOCYTES 6.6 % (2-11); NEUTROPHILS 59.4 % (40-80); PLATELET COUNT 180 10x3/uL (130-400); RBC 4.67 10x6/uL (4.20-6.10); RDW 13.3 % (11.5-14.5); WBC 6.1 10x3/uL (4.8-10.8)
[2018-04-28 08:06] LABS: CALC OSMOLALITY 285 mosm/kg (275-300); CALCIUM 8.2 mg/dL (8.5-10.1); CARBON DIOXIDE 25.7 mmol/L (21.0-32.0); CHLORIDE - SERUM 106 mmol/L (98-107); CREATININE - SERUM 0.9 mg/dL (0.6-1.3); GLUCOSE 99 mg/dL (74-106); SODIUM 142 mmol/L (136-145); UREA NITROGEN 22 mg/dL (7-18); eGFR NON AFRICAN AMERICAN 84 mL/min (90-120)
--- NOTE | 2018-04-28 10:25 | NUR ---
RIGHT GROIN DRESSING C/D/I. NO S/S OF HEMATOMA NOTED. RIGHT PEDAL PULSE PALPABLE.
--- NOTE | 2018-04-28 10:55 | NUR ---
PT RESTING COMFORTABLY AT THIS TIME. RIGHT GROIN DRESSING C/D/I. NO S/S OF HEMATOMA NOTED. RIGHT PEDAL PULSE PALPABLE.
--- NOTE | 2018-04-28 11:30 | NUR ---
PT RESTING COMFORTABLY. GIVEN A LISINOPRIL (HOME MED) FOR HIS HTN. SBP 193. HE REPORTS HE DID NOT TAKE HIS MEDICATIONS THIS MORNING. WILL CONTINUE TO MONITOR. RIGHT GROIN DRESSING C/D/I. NO S/S OF HEMATOMA NOTED.
--- NOTE | 2018-04-28 11:49 | NUR ---
PT VOIDED 500CC OF CLEAR YELLOW URINE IN URINAL.
--- NOTE | 2018-04-28 12:25 | NUR ---
PT EATING LUNCH. FAMILY AT BEDSIDE. RIGHT GROIN DRESSING C/D/I. NO S/S OF HEMATOMA NOTED. RIGHT PEDAL PULSE PALPABLE.
--- NOTE | 2018-04-28 13:05 | NUR ---
HEAD OF BED INC TO 30 DEGREES. RIGHT GROIN DRESSING C/D/I. NO S/S OF HEMATOMA. DENIES NAUSEA. VSS.
--- NOTE | 2018-04-28 13:30 | NUR ---
RIGHT WRIST PIV D/C'D WITH CATH TIP INTACT. PT TOLERATED WELL. RIGHT GROIN DRESSING C/D/I. NO S/S OF HEMATOMA NOTED. PT INSTRUCTED TO DRESS.
--- NOTE | 2018-04-28 13:47 | NUR ---
PT AMBULATED TO RESTROOM AND BACK TO ROOM. DISCUSSED DISCHARGE INSTRUCTIONS WITH PT AND PT'S FAMILY. THEY VOICED UNDERSTANDING. GAVE PRESCRIPTION TO PT'S SPOUSE.
--- NOTE | 2018-04-28 13:55 | NUR ---
PT TAKEN OUT BY WHEELCHAIR TO VEHICLE. NO S/S OF DISTRESS NOTED. ALL BELONGINGS IN HAND.
--- NOTE | 2018-04-30 13:30 | HP ---
PATIENT: ANNABELLE VASQUEZ MEDICAL RECORD: [id number] ACCOUNT: [id number] LOCATION:[facility] : [birth year] ADMISSION DATE: 04/28/18 PCP: GLENN BURR HISTORY AND PHYSICAL EXAMINATION HISTORY OF PRESENT ILLNESS: An 87-year-old gentleman with a known history of coronary artery disease, previously admitted with acute myocardial infarction, underwent intervention at that time, had residual disease of the circumflex being brought to the parking lot laborer for intervention from that standpoint. PHYSICAL EXAMINATION: GENERAL: Well-developed gentleman appears younger than stated age. VITAL SIGNS: Blood pressure 148/64, pulse 78 and regular, occasional extrasystole. HEENT: Normocephalic, atraumatic. NECK: No bruits are noted. HEART: Regular, occasional extrasystole, II/ systolic ejection murmur. LUNGS: Good air excursion. EXTREMITIES: Pulses are well preserved, 2+ with no edema. IMPRESSION AND PLAN: Intervention to the circ. TRANSINT:[id number] Voice Confirmation ID: [id number] DOCUMENT ID: [id number] SAYRA MURRIETA MD at 1330 CC: [id number] DICTATION DATE: 04/28/18 1009 ENERGY PROJECT ENGINEER: 04/28/18 1031 [facility] CLI 04/28/18 [address] [id number] [place] [address]
--- NOTE | 2018-04-30 13:30 | OP ---
PATIENT NAME: ANNABELLE VASQUEZ MEDICAL RECORD: [id number] :[birth year] LOCATION:[facility] ADMISSION DATE: SURGEON: SAYRA MURRIETA MD DATE OF OPERATION: 04/28/2018 PROCEDURE: PTCA stent. DESCRIPTION OF PROCEDURE: After the right femoral artery was cannulated via modified Seldinger technique, a 6-Bahamian sheath followed by a JL4 guiding catheter provided excellent guide cath support. The 90% stenosed circumflex was then crossed with a Whisper wire. Stent deployed was a 3.0 x 18 [place] drug-eluting stent up to 14 atmospheres. Final angiography shows excellent resolution of 80% to 90% stenosis, no significant residual. MAURA flow was 3 throughout the procedure. Heparin was used during the case. The patient previously was on Plavix. Sheath closed with ExoSeal device. TRANSINT:[id number] Voice Confirmation ID: [id number] DOCUMENT ID: [id number] SAYRA MURRIETA MD at 1330 CC: [id number] DICTATION DATE: 04/28/18 1010 BEVERAGE DISTILLER: 04/28/18 1045 [facility] CLI 04/28/18 [address] [id number] [place] [address]
== END 2018-04-28 13:55 | disposition home or self-care (01) ==
LOC: D.CATH 06:37
PROVIDERS: Internal Medicine Interventional Cardiology
DX: I25.10 Atherosclerotic heart disease of native coronary artery without angina pectoris (principal)